=== PATIENT | female | born 1990 | race Caucasian/White ===

== ENCOUNTER 2016-11-18 04:56 | Inpatient (IN) | payer OTHER ==
--- NOTE | 2016-11-18 04:59 | PDOC ---
[id number] PAIN/N/V Time Seen by Provider: 11/18/16 04:58 - History of Present Illness Initial Comments: 11/18/16 05:15 This 26-year-old woman history of factor XI deficiency/ von Willebrand's disease /Graves' disease, accompanied by her , presents with several hour history of progressive right-sided abdominal pain accompanied by nausea/vomiting. Patient states that she ate dinner normally last night with mild right-sided flank and mid abdominal pain starting at approximately 8 PM. Over the next few hours, pain became more severe and accompanied by nausea and vomiting (3 episodes of emesis with a small amount of blood in the last). She also had one normal bowel movement during this time.pain continued to worsen and patient presented here. No history of fever/chills Patient began menstruating yesterday,no unusual flow noted Although patient has factor XI deficiency and von Willebrand's disease, she does take ibuprofen occasionally and had 600 mg dose at approximately 10 PM last night. Patient has history of endometriosis and has history of laparoscopy(Oct 2014) which showed endometriosis("in 5 places")and uterine polyp. No known history of ovarian cysts meds as noted below Allergy:Penicillin Past History - Past Medical History Allergies/Adverse Reactions: Allergies Allergy/AdvReac Type Severity Reaction Status Date / Time Penicillins Allergy Verified 11/18/16 04:58 FFP AdvReac Uncoded 11/18/16 12:17 Home Medications: Ambulatory Orders Dextroamphetamine/Amphetamine [Adderall 10 mg Tablet] 10 mg PO PRN PRN 11/18/16 Levofloxacin [Levaquin -] 500 mg PO DAILY #10 tablet 11/18/16 Levothyroxine [Synthroid -] 150 mcg PO DAILY 11/18/16 Lisdexamfetamine Dimesylate [Vyvanse] 10 mg PO DAILY 11/18/16 Metronidazole [Flagyl -] 500 mg PO TID #30 tablet 11/18/16 Oxycodone HCl/Acetaminophen [Percocet 5-325 mg Tablet] 1 - 2 tab PO Q6H #28 tab MDD 4 11/18/16 Sertraline HCl [Zoloft -] 75 mg PO DAILY 11/18/16 Xanax PRN PRN 11/18/16 Review of Systems - Review of Systems Able to Perform ROS?: Yes Comments:: 12 point review of systems is negative except for what is noted in the history of present illness *Physical Exam - Physical Exam Comments: adult female,in moderate distress secondary to abdominal pain, crying intermittently; VS as noted HEAD: Normal with no signs of trauma. EYES: Pupils equal, round and reactive to light, extraocular movements intact, sclera anicteric, conjunctiva clear with no pallor. ENT: moist mucous membranes. Ears normal, nares patent, oropharynx clear without exudates. NECK: Normal range of motion, supple without lymphadenopathy, JVD, or masses. LUNGS: Breath sounds equal, clear to auscultation bilaterally. No wheeze/ crackles. HEART: Regular rate and rhythm, normal S1 and S2 without murmur or rub. ABDOMEN: Soft/nondistended. BS wnl. Moderate right lower quadrant/right flank tenderness . No palpable masses. No hepatosplenomegaly. EXTREMITIES: Normal range of motion, no edema. No clubbing or cyanosis. No cords, erythema, or tenderness. NEUROLOGICAL: Cranial nerves II through XII grossly intact. Normal speech, normal gait. SKIN: Warm, Dry, normal turgor, no rashes or lesions noted. ED Treatment Course - LABORATORY CBC & Chemistry Diagram: 11/19/16 07:19 11/19/16 07:19 Progress Note - Progress Note Progress Note: This 26-year-old woman presents with several hour history of progressive right- sided abdominal pain accompanied by nausea and vomiting. Patient is afebrile; abdominal exam notable for tenderness in the right lower quadrant/right flank area. Differential diagnosis includes acute appendicitis versus renal colic versus ovarian torsion. Patient will receive a liter normal saline as well as 4 mg of Zofran. Because patient has a history of factor XI deficiency and von Willebrand's disease, nonsteroidal anti-inflammatory medications will be avoided and Dilaudid 0.5 mg IV given for pain control. Medical Decision Making - Medical Decision Making 11/18/16 06:16 Patient was relatively more comfortable after 1 liter NS, ZofranIV and Dilaudid IV. Pain/Nausea now recurring. Additional 4mg Zofran/ 0.5mg Dilaudid IV will be given; NS at 125ml/hr 11/18/16 06:41 Laboratory evaluation notable for WBC of 16,900 with predominance of neutrophils Chemistry profile shows moderate pre-renal azotemia(BUN18/Cre0.8); TSH[ requested by patient] elevated at 4.71 INR normal at 1.07 Abd/Pelvic CT with IV contrast ordered 11/18/16 07:03 Case signed out to incoming physician at end of shift *DC/Admit/Observation/Transfer Diagnosis at time of Disposition: Acute appendicitis Qualifiers: Acute appendicitis type: with localized peritonitis Qualified Code(s): K35.3 - Acute appendicitis with localized peritonitis - Discharge Dispostion Condition at time of disposition: Stable - Prescriptions
[2016-11-18 05:09] VITALS: BMI 26.6
[2016-11-18] MEDS ORDERED: SODIUM CHLORIDE 1,000 ML IV STA (05:10)
[2016-11-18] MEDS ORDERED: ONDANSETRON 4 MG/2 ML VIAL IVPUSH ONE ×2 (05:10→06:12)
[2016-11-18] MEDS ORDERED: ONDANSETRON 4 MG/2 ML VIAL ONE ×5 (05:11→12:27)
[2016-11-18] MEDS ORDERED: HYDROmorphone HCL CARPU-JECT 1 MG/1 ML DISP.SYRIN IVPUSH ONE (05:20)
[2016-11-18] MEDS ORDERED: HYDROmorphone HCL CARPU-JECT 2 MG/1 ML DISP.SYRIN ONE ×2 (05:21→08:01)
[2016-11-18 05:59] LABS: BASOPHIL 0.5 % (0-2.0); EOSINOPHIL 0.5 % (0-4.5); MCHC 33.6 g/dl (32.0-36.0); MEAN CELL VOLUME 89.4 fl (80-96); MEAN PLT VOLUME 8.4 fl (7.5-11.1); NEUTROPHILS 87.9 % (42.8-82.8); PLATELET COUNT 243 K/MM3 (134-434); WHITE BLOOD COUNT 16.9 K/mm3 (4.0-10.0)
[2016-11-18 06:13] LABS: INR 1.07 (0.82-1.09); PROTHROMBIN TIME (PATIENT) 11.8 SEC (9.98-11.88)
[2016-11-18] MEDS ORDERED: HYDROmorphone HCL CARPU-JECT 1 MG/1 ML DISP.SYRIN IVPB ONE ×3 (06:13→10:13)
[2016-11-18] MEDS ORDERED: SODIUM CHLORIDE 1,000 ML IV SCH ×3 (06:15→21:30)
[2016-11-18 06:21] LABS: ANION GAP 11 (8-16); CALCIUM 8.3 mg/dL (8.5-10.1); CO2 24 mmol/L (21-32); CREATININE 0.8 mg/dL (0.55-1.02); GLUCOSE,RANDOM 118 mg/dL (74-106); SGOT/AST 21 U/L (15-37); SGPT/ALT 19 U/L (12-78)
[2016-11-18 06:31] LABS: ALK PHOS 54 U/L (45-117); BILIRUBIN,TOTAL 0.7 mg/dL (0.2-1.0); THYROID STIMULATING HORMONE 4.71 uIU/ml (0.358-3.74); TOT PROT 7.2 g/dl (6.4-8.2)
[2016-11-18] MEDS ORDERED: METOCLOPRAMIDE HCL INJECTION 10 MG/2 ML VIAL IVPB ONE (07:55)
--- NOTE | 2016-11-18 08:08 | PDOC ---
*Physical Exam - Vital Signs Last Vital Signs Temp Pulse Resp BP Pulse Ox 97.9 F 66 16 107/72 97 11/18/16 05:02 11/18/16 05:02 11/18/16 05:02 11/18/16 05:02 11/18/16 05:02 ED Treatment Course - LABORATORY CBC & Chemistry Diagram: 11/20/16 07:00 11/19/16 07:19 - ADDITIONAL ORDERS Additional order review: Laboratory Results 11/18/16 11/18/16 05:22 05:22 INR 1.07 Sodium 138 Potassium 3.7 Chloride 103 Carbon Dioxide 24 Anion Gap 11 BUN 18 Creatinine 0.8 Creat Clearance w eGFR > 60 Random Glucose 118 H Calcium 8.3 L Total Bilirubin 0.7 AST 21 ALT 19 Alkaline Phosphatase 54 Total Protein 7.2 Albumin 4.0 TSH 4.71 H 11/18/16 05:22 RBC 4.04 MCV 89.4 MCHC 33.6 RDW 13.0 MPV 8.4 Neutrophils % 87.9 H Lymphocytes % 4.9 L Monocytes % 6.2 Eosinophils % 0.5 Basophils % 0.5 - Medications Given in the ED: ED Medications Discontinued Medications Generic Name Dose Route Start Last Admin Trade Name Freq PRN Reason Stop Dose Admin Hydromorphone HCl 0.5 mg 11/18/16 05:20 11/18/16 05:24 Dilaudid Injection - IVPUSH 11/18/16 05:21 0.5 mg ONCE ONE Administration Hydromorphone HCl 0.5 mg 11/18/16 06:13 11/18/16 06:15 Dilaudid Injection - IVPB 11/18/16 06:14 0.5 mg ONCE ONE Administration Sodium Chloride 1,000 mls @ 1,000 mls/hr 11/18/16 05:10 11/18/16 05:17 Normal Saline - IV 11/18/16 06:09 1,000 mls/hr ASDIR STA Administration Metoclopramide HCl 10 mg 11/18/16 07:55 11/18/16 08:00 Reglan Injection - IVPB 11/18/16 07:56 10 mg ONCE ONE Administration Ondansetron HCl 4 mg 11/18/16 05:10 11/18/16 05:17 Zofran Injection IVPUSH 11/18/16 05:11 4 mg ONCE ONE Administration Ondansetron HCl 4 mg 11/18/16 06:12 11/18/16 06:15 Zofran Injection IVPUSH 11/18/16 06:13 4 mg ONCE ONE Administration Medical Decision Making - Medical Decision Making 11/18/16 08:02 Received this patient in sign out She presents to the ER with a complaint of severe RLQ/Flank pain PAin began yesterday at approximately 8pm Pt presented to the ER at 5am writhing in pain Given Zofran 8mg IV and Dilaudid 1mg Pt returned from CT complaining of pain Given Dilaudid 0.5mg IV and Reglan IV Awaiting results of CT PT sent to CT 11/18/16 09:50 Four calls have been made to [facility] radiology requesting that this CT be read promptly No CT read as of yet Type and Screen ordered in anticipation of possible Appy on CT and need for surgery 11/18/16 10:40 CT read after my call to Dr Perales who intervened to get CT read by radiologist CT consistent with Acute Appendicitis Pt has NO history of allergic reaction to PCN (her sister did) Will do Levaquin and Flagyl per request of pt father Call placed to Surgical PA to request Dr Mondragon see this patient as Dr Perales already has another case Will call again 11/18/16 10:[address] Perales to see if her can contact Dr Mondragon (As Angella is going into another case, and pt father would prefer there be no more delays in her management) No ability to do so as we have no other phone numbers for him. 11/18/16 11:37 Dr Perales in currently another case, I have attempted to reach him re: For now, will admit to his service (As pt is young, relatively healthy) Pt complained of Nausea Given Zofran IV Fluids started again FFP already ordered Clinical Impression: Appendicitis *DC/Admit/Observation/Transfer Diagnosis at time of Disposition: Acute appendicitis Qualifiers: Acute appendicitis type: with localized peritonitis Qualified Code(s): K35.3 - Acute appendicitis with localized peritonitis - Discharge Dispostion Disposition: HOME Condition at time of disposition: Stable Admit: Yes - Prescriptions
[2016-11-18 08:12] LABS: URINE APPEARANCE CLEAR; URINE BILIRUBIN NEGATIVE (NEGATIVE); URINE COLOR LTYELLOW; URINE GLUCOSE (UA) NEGATIVE (NEGATIVE); URINE KETONE NEGATIVE (NEGATIVE); URINE LEUK ESTERASE NEGATIVE (NEGATIVE); URINE NITRITE NEGATIVE (NEGATIVE); URINE PROTEIN NEGATIVE (NEGATIVE); URINE UROBILINOGEN NEGATIVE E.U./dl (0.2-1.0)
[2016-11-18 08:25] LABS: URINE BLOOD 1+ (NEGATIVE)
[2016-11-18 08:36] LABS: URINE BACTERIA RARE /hpf (NONE SEEN); URINE RBC <1 /hpf (0-3); URINE WBC <1 /hpf (3-5)
[2016-11-18] MEDS ORDERED: METRONIDAZOLE 500 MG PREMIXED 100 ML IVPB ONE ×2 (10:37→10:46)
[2016-11-18] MEDS ORDERED: LEVOFLOXACIN 500 MG IVPB 100 ML IVPB ONE ×2 (10:37→10:45)
[2016-11-18] MEDS ORDERED: PROPOFOL 20 ML ONE ×2 (12:25)
[2016-11-18] MEDS ORDERED: LIDOCAINE HCL/PF 2% SDV 5ML VIAL ONE (12:25)
[2016-11-18] MEDS ORDERED: SUCCINYLCHOLINE CHLORIDE 200 MG/10 ML VIAL ONE (12:25)
[2016-11-18] MEDS ORDERED: ROCURONIUM BROMIDE 50 MG/5 ML VIAL ONE (12:26)
[2016-11-18] MEDS ORDERED: MIDAZOLAM HCL 2 MG/2 ML SINGLE DOSE VIAL ONE (12:26)
[2016-11-18] MEDS ORDERED: ceFAZolin SODIUM 1 GM VIAL ONE (12:27)
[2016-11-18] MEDS ORDERED: DEXAMETHASONE SOD PHOSPHATE 4 MG/1 ML VIAL ONE (12:27)
[2016-11-18] MEDS ORDERED: LIDOCAINE HCL 2% JELLY (5 ML/TUBE) ONE (12:32)
[2016-11-18] MEDS ORDERED: BUPIVACAINE HCL/PF 2.5 MG/ML - 30 ML VIAL IJ ONE (13:02)
[2016-11-18] MEDS ORDERED: LACTATED RINGERS SOLUTION 1,000 ML IV SCH (13:15)
--- NOTE | 2016-11-18 13:19 | HP ---
Admitting History and Physical - Admission Chief Complaint: Abdominal pain History of Present Illness: 26 female with abdominal pain x several hours Pain is in the RLQ + Nausea No vomiting/diarrhea No fevers/chills History of Factor XI deficiency, Graves Disease No similar episodes in the past History Source: Patient, Family Member, Medical Record Limitations to Obtaining History: No Limitations - Past Medical History Additional Past Medical History: Factor XI deficiency Graves disease - Past Surgical History Additional Past Surgical History: Laparoscopy for endometreosis - Smoking History Smoking history: Never smoked - Alcohol/Substance Use History of Substance Use: reports: None - Social History Usual Living Arrangement: Yes: With Spouse ADL: Independent Home Medications - Allergies Allergies/Adverse Reactions: Allergies Allergy/AdvReac Type Severity Reaction Status Date / Time Penicillins Allergy Verified 11/18/16 04:58 FFP AdvReac Uncoded 11/18/16 12:17 - Home Medications Home Medications: Ambulatory Orders Dextroamphetamine/Amphetamine [Adderall 10 mg Tablet] 10 mg PO PRN PRN 11/18/16 Levothyroxine [Synthroid -] 150 mcg PO DAILY 11/18/16 Lisdexamfetamine Dimesylate [Vyvanse] 10 mg PO DAILY 11/18/16 Sertraline HCl [Zoloft -] 75 mg PO DAILY 11/18/16 Xanax PRN PRN 11/18/16 Family Disease History - Family Disease History Family History: Unremarkable Review of Systems - Review of Systems Constitutional: denies: Chills, Fever HENT: reports: No Symptoms Neck: reports: No Symptoms Cardiovascular: denies: Chest Pain Respiratory: denies: Cough Gastrointestinal: reports: Abdominal Pain (RLQ). denies: Diarrhea, Vomiting Genitourinary: reports: No Symptoms Neurological: denies: Change in LOC Pain Intensity: 6 Physical Examination Vital Signs: Vital Signs Temperature 98.1 F 11/18/16 10:19 Pulse Rate 61 11/18/16 10:19 Respiratory Rate 16 11/18/16 05:02 Blood Pressure 94/57 11/18/16 10:19 O2 Sat by Pulse Oximetry (%) 99 11/18/16 10:19 Constitutional: Yes: Calm HENT: Yes: WNL Neck: Yes: Supple Cardiovascular: Yes: Regular Rate and Rhythm Respiratory: Yes: CTA Bilaterally Gastrointestinal: Yes: Soft, Tenderness (RLQ). No: Distention, Tenderness, Rebound Extremities: Yes: WNL Neurological: Yes: Alert, Oriented Labs: CBC, BMP 11/18/16 05:22 11/18/16 05:22 Imaging - Results Cat Scan: Report Reviewed, Image Reviewed Problem List - Problems (1) Acute appendicitis Code(s): K35.80 - UNSPECIFIED ACUTE APPENDICITIS Qualifiers: Acute appendicitis type: with localized peritonitis Qualified Code(s ): K35.3 - Acute appendicitis with localized peritonitis Assessment/Plan 26 female with acute appendicitis NPO Antibiotics For laparoscopic possible open appendectomy Risks and benefits explained Understands and agrees
[2016-11-18] MEDS ORDERED: HYDROmorphone HCL CARPU-JECT 1 MG/1 ML DISP.SYRIN IVPB PRN (13:20)
[2016-11-18] MEDS ORDERED: TRIMETHOBENZAMIDE HCL 200MG/2ML INJ IM PRN ×2 (13:22→21:17)
[2016-11-18] MEDS ORDERED: ONDANSETRON 4 MG/2 ML VIAL IVPB SCH (13:30)
[2016-11-18] MEDS ORDERED: GLYCOPYRROLATE 0.2 MG/1 ML VIAL ONE ×2 (13:47→13:48)
[2016-11-18] MEDS ORDERED: NEOSTIGMINE METHYLSULFATE 0.5 MG/ML - 10 ML MDV ONE (13:48)
[2016-11-18] MEDS ORDERED: GUM MASTIC/STORAX/MSAL/ALCOHOL 1 DRP DROPSBTL MC ONE ×2 (14:01→14:03)
[2016-11-18] MEDS ORDERED: BUPIVACAINE HCL/PF 0.25% (2.5MG/ML) 10 ML VIAL IJ ONE (14:20)
--- NOTE | 2016-11-18 14:32 | OP ---
Operative Note - Note: Operative Date: 11/18/16 Pre-Operative Diagnosis: Acute appendicitis Operation: Laparoscopic appendectomy Findings: Inflamed appendix with purulent exudate Post-Operative Diagnosis: Other (Acute appendicitis with purulent exudate and local perforation) Surgeon: Trey Perales Sales Secretary: Rossy Bhandari Anesthesia: General Specimens Removed: Appendix Estimated Blood Loss (mls): 30 Operative Report Dictated: Yes
[2016-11-18] MEDS: ACETAMINOPHEN 1000 MG/100 ML VIAL (NON FORMULARY) IVPB SCH ×3 (15:00→21:24)
--- NOTE | 2016-11-18 15:12 | SURG ---
Surgery Sewer And Drain Technician Note Sewer And Drain Technician: Rossy Bhandari PA-C Date of Service: 11/18/16 Diagnosis: Acute appendicitis Procedure: Laparoscopic appendectomy I was present for the entirety of the operative procedure. For further detail, please refer to operative report. Visit type - Case Type Case Type: ED Admission - New patient This patient is new to me today: Yes Date on this admission: 11/18/16
[2016-11-18] MEDS ORDERED: OXYCODONE/APAP 5/325MG COMBO TABLET PO PRN ×2 (17:27→21:18)
[2016-11-18] MEDS ORDERED: METRONIDAZOLE 500 MG PREMIXED 100 ML IVPB SCH (18:00)
--- NOTE | 2016-11-18 20:33 | SPEC ---
DATE OF OPERATION: 11/18/2016 SURGEON: Trey Perales MD SITE PLANNER: NICK Ramon PREOPERATIVE DIAGNOSIS: Acute appendicitis. POSTOPERATIVE DIAGNOSIS: Acute appendicitis with local perforation and seropurulent discharge. OPERATIVE PROCEDURE: Laparoscopic appendectomy. SPECIMEN: Appendix. ANESTHESIA: GET. ESTIMATED BLOOD LOSS: 30 mL. DRAINS: None. FINDINGS: Acute appendicitis with local perforation and seropurulent discharge and dense local adhesions. REASON FOR PROCEDURE: This is a 26-year-old female who presented to the hospital with abdominal pain in the right lower quadrant. On workup, she was found to have an elevated white blood cell count and CT findings consistent with acute appendicitis without abscess formation. Because of this, she was consented for a laparoscopic, possible open, appendectomy. RISKS AND BENEFITS: The risks and benefits were explained for a laparoscopic, possible open appendectomy. These included bleeding, infection, hernia, MA, DVT, PE, injury to surrounding structures including the liver, colon, bowel, bladder, ureter, vessel injury, nerve injury, abscess formation, staple line leak, staple line dehiscence as some of the possible complications. The patient understood and signed informed consent. DESCRIPTION OF PROCEDURE: The patient was placed supine on the operating room table. The patient underwent general endotracheal intubation. A Novoa catheter was inserted by the nursing staff. The abdomen was prepped and draped in the usual sterile fashion. A timeout was performed. A periumbilical incision was made and a 5-mm optical trocar was inserted under direct visualization with the laparoscope. Pneumoperitoneum was then established. Subsequently, a 5-mm trocar was placed in the suprapubic area and a 12-mm trocar placed in the left lower quadrant. The patient was placed in Trendelenburg right side up position. After meticulous dissection, the appendix was identified. The appendix was freed from its surrounding structures and the appendix was retracted to the anterior abdominal wall. The base of the appendix was identified. A window was created within the mesentery near the base of the appendix. The appendix at its base was stapled using a laparoscopic Endo-ISREAL stapler with a white load. The mesoappendix was then transected using a laparoscopic Endo-ISREAL stapler with a white load. The appendix was placed in an EndoCatch bag. Inspection of both staple lines was identified. The staple line at the base of the appendix was noted to be fully intact. Hemostasis was noted at the staple line of the mesoappendix. Copious irrigation and suction was performed. The appendix was removed from the abdominal cavity and sent off the operative field as specimen. The patient was then placed in left side up position. The 12-mm trocar was removed. The fascia at this site was closed using a 0 Vicryl suture with a Vinicio-Himanshu device. The patient was then placed supine. Pneumoperitoneum was desufflated and all further trocars were removed. All incision sites were irrigated and Marcaine was injected at all incision sites. The fascial suture was secured. All incision sites were closed using 4-0 Biosyn. Sterile dressings were applied. The patient tolerated the procedure well. The Novoa catheter was removed and the patient was transferred to the recovery room in stable condition. Maynor WORKMAN/[id number]
[2016-11-19] MEDS: METRONIDAZOLE 500 MG PREMIXED 100 ML IVPB SCH ×3 (01:43→17:17)
[2016-11-19] MEDS: ACETAMINOPHEN 1000 MG/100 ML VIAL (NON FORMULARY) IVPB SCH ×5 (02:48→20:19)
[2016-11-19] MEDS: HYDROmorphone HCL CARPU-JECT 1 MG/1 ML DISP.SYRIN IVPB PRN ×2 (03:36→07:33)
[2016-11-19] MEDS: LEVOTHYROXINE NA 150 MCG TABLET PO SCH (06:18)
[2016-11-19] MEDS ORDERED: LEVOTHYROXINE NA 150 MCG TABLET PO SCH (07:00)
[2016-11-19] MEDS: LEVOFLOXACIN 500 MG IVPB 100 ML IVPB SCH (08:33)
[2016-11-19 09:02] LABS: BASOPHIL 0.2 % (0-2.0); EOSINOPHIL 0.2 % (0-4.5); MCH 29.5 pg (25.7-33.7); MCHC 32.6 g/dl (32.0-36.0); MEAN CELL VOLUME 90.5 fl (80-96); MEAN PLT VOLUME 8.5 fl (7.5-11.1); NEUTROPHILS 83.9 % (42.8-82.8); PLATELET COUNT 201 K/MM3 (134-434); RDW 12.8 % (11.6-15.6); WHITE BLOOD COUNT 12.8 K/mm3 (4.0-10.0)
[2016-11-19 09:10] LABS: CALCIUM 8.1 mg/dl (8.4-10.2); CREATININE 0.6 mg/dl (0.6-1.3)
[2016-11-19] MEDS ORDERED: SERTRALINE HCL 25 MG TABLET (FP) PO SCH (10:00)
[2016-11-19] MEDS: SERTRALINE HCL 25 MG TABLET (FP) PO SCH (10:05)
--- NOTE | 2016-11-19 11:00 | PN ---
[id number], she was treated with benadryl prior to FFP. Itching has improved. Original Note: Progress Note (short form) - Note Progress Note: Pt oob to chair, she denies any nausea or emesis with clears. To have regular breakfast this am. Voiding without difficulty. No flatus or BM. Getting IV pain medication this am. Vital Signs Period Temp Pulse Resp BP Sys/Esteban Pulse Ox Last 24 Hr 98.2 F-99.5 F 59-82 13-125 106-130/48-76 95-100 PE: GEN: appears comfortable, NAD Abd: soft, non-distended, inc tenderness. Inc c/d/i with dermabond. No masses/ ecchymosis noted. LE: no calf tendnerss or swelling noted b/l. CBC, BMP 11/19/16 07:19 11/19/16 07:19 <Claudia Felipe - Last Filed: 11/19/16 14:24> - Note Progress Note: Agree POD 1 Laparoscopic appendectomy Tolerating diet Pain controlled AVSS Abd soft WBC 12.8 H/H 9.9/30.5 Antibiotics OOB Repeat labs in am If stable, plan for discharge in am <Trey Perales - Last Filed: 11/19/16 15:40> Problem List - Problems (1) Acute appendicitis Assessment/Plan: POD#1, doing well oob to chair and ambulate. tolerating a regular diet, discontinue IV fluids. oral pain medicaitons S/w Dr. Perales and will plan for discharge tomorrow if the patient remains afebrile and tolerating a regular diet. Continue IV abx DVT ppx with SCD/ambulation Code(s): K35.80 - UNSPECIFIED ACUTE APPENDICITIS Qualifiers: Acute appendicitis type: with localized peritonitis Qualified Code(s ): K35.3 - Acute appendicitis with localized peritonitis <Claudia Felipe - Last Filed: 11/19/16 14:24> - Problems (1) Acute appendicitis Code(s): K35.80 - UNSPECIFIED ACUTE APPENDICITIS Qualifiers: Acute appendicitis type: with localized peritonitis Qualified Code(s ): K35.3 - Acute appendicitis with localized peritonitis <Trey Perales - Last Filed: 11/19/16 15:40>
[2016-11-19 22:58] VITALS: TEMP 98.6
[2016-11-20] MEDS ORDERED: diphenhydrAMINE HCL 25 MG CAPSULE (FP) PO ONE (00:35)
[2016-11-20] MEDS: METRONIDAZOLE 500 MG PREMIXED 100 ML IVPB SCH ×2 (01:13→09:48)
[2016-11-20] MEDS: ACETAMINOPHEN 1000 MG/100 ML VIAL (NON FORMULARY) IVPB SCH ×2 (02:10→09:48)
[2016-11-20] MEDS: LEVOTHYROXINE NA 150 MCG TABLET PO SCH (06:22)
[2016-11-20 06:38] VITALS: BP 98/58; PULSE 51
[2016-11-20] MEDS: LEVOFLOXACIN 500 MG IVPB 100 ML IVPB SCH (08:10)
[2016-11-20 08:23] LABS: BASOPHIL 0.5 % (0-2.0); EOSINOPHIL 1.2 % (0-4.5); MCH 29.4 pg (25.7-33.7); MCHC 32.4 g/dl (32.0-36.0); MEAN CELL VOLUME 90.7 fl (80-96); MEAN PLT VOLUME 8.7 fl (7.5-11.1); NEUTROPHILS 59.9 % (42.8-82.8); PLATELET COUNT 212 K/MM3 (134-434); RDW 12.7 % (11.6-15.6); WHITE BLOOD COUNT 7.8 K/mm3 (4.0-10.0)
[2016-11-20] MEDS ORDERED: FAMOTIDINE 20 MG/50 ML IVPB 50 ML IVPB ONE (08:59)
--- NOTE | 2016-11-20 09:26 | HOSP ---
Subjective - Review of Symptoms Subjective: patient was receiving levaquin and reports itching to the IV site traveling upward, denies any shortness of breath, pt is speaking n full sentences. Other Systems: integ- pruritis to the right arm Physical Examination Vital Signs: Vital Signs Temperature 98.6 F 11/20/16 06:36 Pulse Rate 51 L 11/20/16 06:36 Respiratory Rate 18 11/20/16 06:36 Blood Pressure 98/58 11/20/16 06:36 O2 Sat by Pulse Oximetry (%) 98 11/20/16 08:24 Constitutional: Yes: Well Nourished, No Distress, Calm Eyes: Yes: WNL, Conjunctiva Clear, EOM Intact HENT: Yes: WNL, Atraumatic, Normocephalic Neck: Yes: WNL, Supple, Trachea Midline Cardiovascular: Yes: WNL, Regular Rate and Rhythm, S1, S2 Respiratory: Yes: WNL, Regular, CTA Bilaterally Gastrointestinal: Yes: WNL, Normal Bowel Sounds, Soft ...Rectal Exam: Yes: Deferred Musculoskeletal: Yes: WNL Extremities: Yes: WNL Edema: No Peripheral Pulses WNL: Yes Peripheral Pulses: Left Radial: 4+, Right Radial: 4+, Left Doralis Pedis: 3+, Right Dorsalis Pedis: 3+, Left Femoral: 3+, Right Femoral: 3+ Integumentary: Yes: Other (right AC- red raised rash extending to medial right arm) Neurological: Yes: WNL, Alert, Oriented ...Motor Strength: WNL Psychiatric: Yes: WNL, Alert, Oriented Labs: CBC, BMP 11/20/16 07:00 11/19/16 07:19 Hospitalist Encounter Outcome: d/c levaquin benadryl and pepcid start rocephin 2gm continue flagyl Primary Physician Notified: Trey Perales PMD Notified: 09:00
[2016-11-20] MEDS: SERTRALINE HCL 25 MG TABLET (FP) PO SCH (09:49)
[2016-11-20] MEDS ORDERED: CEFTRIAXONE 1 GM in DEXTROSE 5%-WATER - 50 ML IVPB SCH (10:00)
[2016-11-20] MEDS ORDERED: CEFTRIAXONE 2 GM in DEXTROSE 5%-WATER - 50 ML IVPB SCH (10:00)
--- NOTE | 2016-11-20 10:53 | DS ---
Physical Examination Vital Signs: Vital Signs Temperature 98.6 F 11/20/16 06:36 Pulse Rate 51 L 11/20/16 06:36 Respiratory Rate 18 11/20/16 06:36 Blood Pressure 98/58 11/20/16 06:36 O2 Sat by Pulse Oximetry (%) 98 11/20/16 08:24 Constitutional: Yes: Calm HENT: Yes: WNL Cardiovascular: Yes: Regular Rate and Rhythm Respiratory: Yes: CTA Bilaterally Gastrointestinal: Yes: Soft Extremities: Yes: WNL Wound/Incision: Yes: Clean/Dry Neurological: Yes: Alert, Oriented Labs: CBC, BMP 11/20/16 07:00 11/19/16 07:19 Discharge Summary Reason For Visit: APPENDICITIS Current Active Problems Acute appendicitis (Acute) Procedures: Principal: Laparoscopic appendectomy for locally perforated appendicitis Hospital Course: S/P Laparoscopic appendectomy Local perforation with purulence seen Tolerated procedure well Continued on antibiotics for 48 hours post op WBC normalized H/H stable Tolerated diet Pain controlled Discharged in stable condition on antibiotics Condition: Stable - Instructions Diet, Activity, Other Instructions: [facility] Miguel Perales M.D. [address] [place] [address] for [place]ariatric [place] [address] Robotic, Bariatric and General Surgery Postoperative Instructions for General Surgery Activity: Resume normal everyday activity as tolerated. You may walk and climb stairs without any limitation. We encourage you to walk as often as you can Do not lift anything more than 10 pounds for 8 weeks. At that time, you can return to full activity, including the gym, without limitation. Do not drive a motor vehicle while taking prescribes narcotic pain medication. Wound Care: If you have a bandage in place, leave it on for 3 days. At that time you may remove the outer bandage. If there are strips of tape on the skin after removing the outer bandage, leave them in place. They will fall off by themselves. Do not remove them. If there is clear glue on the skin after removing the outer bandage, leave it in place. Do not pick at it or peel it off. You may shower after taking the outer bandage off, 3 days after your surgery. For male groin hernia patients: you may notice a black and blue discoloration of your testicles. This is normal and should resolve over the next week or two. If this persists, please call the office. Diet: You may continue your regular diet at home. If you have a history of high blood pressure, you should be on a low sodium diet. If you have a history of Diabetes Mellitus, you should be on a diabetic/sugar controlled diet. If you had your gallbladder removed, you should be on a low cholesterol/low fat diet. Medications/Pain Management: You may resume previous medications unless told otherwise. You may take the prescribed narcotic pain medication as needed. If the narcotic medication is not needed for pain control, you may take Tylenol. Avoid all other pain medications including Advil, Ibuprofen, Motrin, Aspirin, Naprosyn, Aleve, Celebrex. Vomiting/Nausea: This may occur if you eat too fast, don't chew, or eat too much. Go back to fluids. If the vomiting or nausea persists, call the office. Constipation/Diarrhea: You may experience a change in bowel habits. Many things affect this, including taking pain medication. If either persist, call the office. Follow up: Call the office at [phone] for an appointment 2 weeks after you surgical procedure. Referrals: STAFF,NOT ON [Primary Care Provider] - Disposition: HOME - Home Medications Comprehensive Discharge Medication List: Ambulatory Orders Dextroamphetamine/Amphetamine [Adderall 10 mg Tablet] 10 mg PO PRN PRN 11/18/16 Levothyroxine [Synthroid -] 150 mcg PO DAILY 11/18/16 Lisdexamfetamine Dimesylate [Vyvanse] 10 mg PO DAILY 11/18/16 Metronidazole [Flagyl -] 500 mg PO TID #30 tablet 11/18/16 Sertraline HCl [Zoloft -] 75 mg PO DAILY 11/18/16 Xanax PRN PRN 11/18/16 Oxycodone HCl/Acetaminophen [Percocet 5-325 mg Tablet] 1 tab PO Q6H #28 tablet MDD 4 11/20/16 Sulfamethoxazole/Trimethoprim [Bactrim Ds -] 1 tab PO BID #10 tablet 11/20/16
[2016-11-20] MEDS ORDERED: cefTRIAXone 2 GM/100 ML BAG (PRE-DOCKED) IVPB SCH (11:00)
--- NOTE | 2016-11-20 12:14 | PATH ---
Surgical Pathology Report Patient Name: NHI DERAS Med. Rec. #: [id number] /Age/Gender: 1990 (Age: 26) / F Account: [id number] Location: [facility] MED-SURG Taken: 11/18/2016 Received: 11/18/2016 Reported: 11/20/2016 Physicians: Trey Perales M.D. Specimen(s) Received APPENDIX Clinical History Acute appendicitis Final Diagnosis APPENDIX, APPENDECTOMY: ACUTE APPENDICITIS AND PERIAPPENDICITIS. Electronically Signed Dave Carlos M.D. Gross Description Received in formalin, labeled "appendix," is a 6 cm. in length vermiform appendix with a stapled margin of resection and moderate attached fat. The serosa is alvarez-kat with focal adhesions. Sectioning reveals a focally hemorrhagic lumen. The wall of the appendix averages 0.1 cm. in thickness. Technical Information Specialist sections are submitted in one cassette. /11/19/2016 saudi11/19/2016
--- NOTE | 2016-11-20 13:33 | PN ---
Progress Note (short form) - Note Progress Note: Pt seen earlier this am. She is passing flatus and has no nausea or emesis. Tolerating a solid food diet. Vital Signs Period Temp Pulse Resp BP Sys/Esteban Pulse Ox Last 24 Hr 98.1 F-98.6 F 51-56 16-18 98-114/58-69 98-100 PE: GEN: A&0x3, appears comfortable CV: RRR Lungs: CTA b/l ABD: soft, non-distended, inc tenderness. Inc c/d/i with dermabond. LE: no calf tenderness or swelling noted b/l CBC, BMP 11/20/16 07:00 // 07:19 Problem List - Problems (1) Acute appendicitis Assessment/Plan: POD#2 patient doing well, plan for discharge to home today. Continue oral medications. Discharge order with oral antibiotics/pain medications placed by Dr. Perales and follow-up care. Code(s): K35.80 - UNSPECIFIED ACUTE APPENDICITIS Qualifiers: Acute appendicitis type: with localized peritonitis Qualified Code(s ): K35.3 - Acute appendicitis with localized peritonitis
== END 2016-11-20 13:44 | disposition home or self-care (01) | DRG 339 ==
LOC: FER 04:56 → FM/S 13:20 → FASU 15:48 → FM/S 15:49 → FASU 15:49 → UNDOADMIN 17:48 → FASU 17:48 → FM/S 17:48 → UNDOADMIN 17:49
PROVIDERS: ADMIT Surgery; ATTEND Surgery
PROC: 0DTJ4ZZ Resection of Appendix, Percutaneous Endoscopic Approach (ICD-10-PCS; principal; 2016-11-18 13:36)
DX: K35.3 Acute appendicitis with localized peritonitis (principal); D68.1 Hereditary factor XI deficiency; D68.0 Von Willebrand disease; E05.00 Thyrotoxicosis with diffuse goiter without thyrotoxic crisis or storm
CPT/HCPCS: 36415; 36430; 74177-TC; 80048; 80053; 81003; 81015; 84443; 85025; 85610; 86850; 86900; 86901; 88304-TC; 94010; 94760; 99284-25; P9017